=== PATIENT | female | born 2000 | race Hispanic/Latino ===

== ENCOUNTER 2021-03-21 07:30 | Emergency (ER) | payer OTHER, SELFPAY ==
[2021-03-21 07:55] VITALS: BP 134/77; PULSE 97; RESP 16; TEMP 36.7; O2SAT 98; BMI 49.4
--- NOTE | 2021-03-21 08:04 | ED.ABDPAIN ---
HPI - Abdominal Pain General Chief Complaint: Abdominal Pain Stated Complaint: rib pain Time Seen by Provider: 03/21/21 07:46 Source: patient Mode of arrival: Family Vehicle Limitations: no limitations History of Present Illness HPI narrative: Med patient is a 21-year-old female who presents with abdominal pain and epigastric and right upper quadrant pain ongoing for last 3 days. She initially had blood work and an outpatient ultrasound which she was told was fine and that her gallbladder was not an issue. She continued to have increasing pain the following day and went to [facility] was she had a CT. She says her CT was negative. She has hurts every time she breathes but she is not short of breath she has no radiating chest pain. No fever or chills. She has had decreased appetite. She has been told that she had gastritis by 2 other physicians but she does not have nausea vomiting or diarrhea. MD complaint: abdominal pain Onset (ago): day(s) (3) Pain Consistency: constant Location: RUQ and epigastric Severity: moderate Related Data Home Medications Medication Instructions Recorded Confirmed phentermine 37.5 mg PO DAILY 03/21/21 03/21/21 Previous Rx's Medication Instructions Recorded ibuprofen 600 mg PO Q6H PRN #30 tab 03/21/21 omeprazole 20 mg PO BID #30 cap 03/21/21 Allergies Allergy/AdvReac Type Severity Reaction Status Date / Time adhesive Allergy Verified 03/21/21 08:02 latex Allergy Verified 03/21/21 08:02 Review of Systems Review of Systems Narrative: GENERAL: Denies chills, fatigue, malaise, fever, sweats, travel HEENT: Denies sinus pain, ear pain, sore throat, difficulty swallowing, neck pain RESPIRATORY: Denies dyspnea, cough, wheezing, hemoptysis, sputum. CARDIOVASCULAR: Denies chest pain, palpitations, orthopnea, edema GASTROINTESTINAL: See HPI : Denies dysuria, frequency, incontinence, hematuria, urinary retention, flank pain. MUSCULOSKELETAL: Denies weakness, joint pain, or bony pain SKIN: No rash, no erythema, no pruritus NEUROLOGIC: Denies weakness, dizziness, headache, numbness, change in speech, confusion PSYCHIATRIC: No concerning psychosocial issues. 12 point review of systems is negative except for those stated above and HPI Patient History Medical History Patient denies medical problems Social History Smoking Status: Never smoker Smoking Status: Never smoker alcohol intake frequency: 0-2 drinks per day Substance Use Type: does not use Exam Initial Vital Signs Initial Vital Signs: Vital Signs Temperature 98.1 F 03/21/21 07:55 Pulse Rate 97 H 03/21/21 07:55 Respiratory Rate 16 03/21/21 07:55 Blood Pressure 134/77 03/21/21 07:55 Pulse Oximetry 98 03/21/21 07:55 GENERAL: Alert 21-year-old female BMI 49 appears uncomfortable and in no acute distress. HEENT: Head atraumatic,EOMI, pupils reactive, face symmetric, moist] mucous membranes CARDIOVASCULAR: Regular rate and rhythm without murmurs, rubs or gallops. RESPIRATORY: Breath sounds equal bilaterally, no wheezes rales or rhonchi. ABDOMEN: Soft, quite tender in her epigastric and right upper quadrant area with very minimal palpation. No lower abdominal pain. Tearful on exam EXTREMITIES: Normal range of motion, no clubbing or edema. Neurovascularly intact NEUROLOGICAL: Alert and oriented x4.Normal gait and speech. SKIN: Warm, dry, no laceration, no petechiae, no rashes or lesions. Scores PERC Score Age greater than or equal to 50 years: No Heart rate greater than or equal to 100 bpm: No Room Air O2 Sat less than 95%: No Unilateral leg swelling: No Recent trauma or surgery: No Hemoptysis: No Prior PE or DVT: No Hormone Use: No Total PERC Score: 0 Wells' Criteria for PE Clinical signs and symptoms of DVT: No PE is #1 Dx or equally likely: No Heart rate > 100: No Immobilization at least 3 days or surg in previous 4 weeks: No History of PE or DVT: No Hemoptysis: No Malignancy w/Treatment within 6 months or palliative: No Wells' PE Score total: 0 Course Orders Ordered: ED Orders 03/21/21 08:33 EKG-12 Lead Stat 03/21/21 08:55 Complete Blood Count AUTO DIFF Stat Comprehensive Metabolic Panel Stat Lipase Stat 03/21/21 10:16 XR chest 2V Stat Discontinued Medications Ketorolac Tromethamine (Ketorolac 30 Mg/Ml Vial) 30 mg IV NOW ONE Stop: 03/21/21 08:03 Last Admin: 03/21/21 09:02 Dose: 30 mg Documented by: JOSE J Pantoprazole Sodium (Pantoprazole 40 Mg Vial) 40 mg IV NOW ONE Stop: 03/21/21 08:03 Last Admin: 03/21/21 09:02 Dose: 40 mg Documented by: JOSE J Vital Signs Vital signs: Vital Signs - 8 hr 03/21/21 07:55 03/21/21 10:26 Temperature 98.1 F Pulse Rate 97 H 98 H Respiratory Rate 16 15 Blood Pressure 134/77 143/94 H Pulse Oximetry 98 97 MDM - Abdominal Pain Lab Data Attestation: I reviewed the patient's lab results. Result diagrams: 03/21/21 08:55 03/21/21 08:55 Labs: Lab Results 03/21/21 03/21/21 Range/Units 08:55 08:55 WBC 10.7 (4.5-11.0) X10^3/uL RBC 4.86 (4.0-5.2) X10^6/uL Hgb 14.4 (12.0-16.0) g/dL Hct 42.9 (36-46) % MCV 88.2 (80-100) fL MCH 29.6 (26-34) PG MCHC 33.5 (30-36) % RDW 13.9 (11.6-14.8) % Plt Count 279 (150-400) X10^3/uL Neut % (Auto) 69.6 (50-75) % Lymph % (Auto) 21.2 L (25-40) % Mckean % (Auto) 7.1 (3-14) % Eos % (Auto) 1.3 L (2-4) % Baso % (Auto) 0.8 (0-2) % Neut # (Auto) 7500 H (3738-1878) /uL Lymph # (Auto) 2300 (6494-1224) /uL Mckean # (Auto) 800 (0-900) /uL Eos # (Auto) 100 (0-450) /uL Baso # (Auto) 100 (0-100) /uL Sodium 137 (137-145) mmol/L Potassium 5.2 H (3.4-5.1) mmol/L Chloride 104 (98-107) mmol/L Carbon Dioxide 24 (22-32) mmol/L BUN 12 (7-17) mg/dL Creatinine 0.66 (0.52-1.04) mg/dL Estimated GFR > 60.0 (>60) mL/min BUN/Creatinine Ratio 18.2 (6-22) Glucose 90 (70-100) mg/dL Calcium 9.2 (8.4-10.2) mg/dL Total Bilirubin 0.9 (0.2-1.3) mg/dL AST 42 H (14-36) IU/L ALT 29 (<35) IU/L Alkaline Phosphatase 82 (38-126) U/L Total Protein 8.3 H (6.3-8.2) g/dL Albumin 4.3 (3.5-5.0) g/dL Globulin 4.0 (1.7-4.1) g/dL Albumin/Globulin Ratio 1.1 (1.0-2.8) Lipase 54 (23-300) U/L Imaging Data Chest x-ray: Radiologist's Impression: PROCEDURE: XR CHEST 2V INDICATIONS: right sided pain TECHNIQUE: 2 views of the chest were acquired. COMPARISON: [facility], CT, CT ABDOMEN PELVIS WITH CONTRAST, 03/19/2021, 21:47. [facility], CR, XR CHEST 2VW, 12/25/2016, 10:08. FINDINGS: Surgical changes and devices: None. Lungs and pleura: An incomplete inspiratory result is noted, causing a crowded appearance to the lung markings. No focal infiltrates are seen. No pneumothorax or significant pleural effusions are seen. Mediastinum: Mediastinal contours are normal. Heart size is normal. Bones and chest wall: No suspicious bony abnormalities. Soft tissues appear unremarkable. IMPRESSION: No shyla, acute abnormality can be seen. Low lung volumes. Dictated by: Yoan Pina M.D. on 03/21/2021 at 9:31 ECG Data Attestation: I personally reviewed and interpreted this ECG as follows: Prior ECG tracings: not available for review Interpretation: Normal sinus rhythm rate 86 p.r. interval 172 QRS 86 QTC 418 , no S-wave in lead 1 or Q-wave in lead 3 to suggest pulmonary embolism MDM Narrative Medical decision making narrative: Patient has had workup at [facility] records have been received and reviewed. She had CT and ultrasound which did not show any gallbladder abnormality. She has no reported nausea vomiting or diarrhea I think gastritis is unlikely. She is quite tender epigastric and actually pinpoint on her ribs on the right side. Right-sided pain is reproducible palpation of the rib which radiates to her epigastric area. She denies any recent injury. At this time I think costochondritis is more likely. EKG is overall reassuring no sign of pulmonary embolism on EKG she is also very low risk for PE at this time, she has a Mirena IUD and is not on hormone use, I do not think further testing or imaging is indicated for that. Her pain has improved after Toradol. Chest x-ray is reassuring. At this time no need to repeat ultrasound or CT scan blood work does not show any abnormality. Discharge Plan Departure Patient Disposition: Home Clinical Impression: Costochondritis Instructions: Costochondritis Activity Restrictions/Additional Instructions: *You have been diagnosed with costochondritis *What to do: At this time you have pinpoint pain on your ribs which may be from sprained rib this. He may try ice or heat. You may also require more testing of her gallbladder including a HIDA scan *Continue to take medications as directed Ibuprofen 600 mg every 6 hours if needed for [id number] pain Tylenol 1000 mg every 6 hours if needed for [id number] pain *Follow up with your primary care provider in 2-3 days *Return to ER if you should have increasing shortness of breath, chest pain or any new, worsening or concerning symptoms Prescriptions: New ibuprofen 600 mg tablet 600 mg PO Q6H PRN (Reason: fever or pain) Qty: 30 RF: 0 omeprazole 20 mg capsule,delayed release(DR/EC) 20 mg PO BID Qty: 30 RF: 0 No Action phentermine 37.5 mg tablet 37.5 mg PO DAILY RF: 0
[2021-03-21] MEDS: PANTOPRAZOLE 40 MG VIAL IV (09:02)
[2021-03-21] MEDS: KETOROLAC 30 MG/ML VIAL IV (09:02)
[2021-03-21 09:12] LABS: Add Manual Diff / Slide Review NO; Basophils Absolute Auto 100 /uL (0-100); Basophils Percent Auto 0.8 % (0-2); Eosinophils Absolute Auto 100 /uL (0-450); Eosinophils Percent Auto 1.3 % (2-4); Hematocrit 42.9 % (36-46); Hemoglobin 14.4 g/dL (12.0-16.0); Lymphocytes Absolute Auto 2300 /uL (1100-4500); Lymphocytes Percent Auto 21.2 % (25-40); Mean Corpuscular HGB Conc 33.5 % (30-36); Mean Corpuscular Hemoglobin 29.6 PG (26-34); Mean Corpuscular Volume 88.2 fL (80-100); Monocytes Absolute Auto 800 /uL (0-900); Monocytes Percent Auto 7.1 % (3-14); Neutrophils Absolute Auto 7500 /uL (1500-7000); Neutrophils Percent Auto 69.6 % (50-75); Platelet Count 279 X10^3/uL (150-400); Red Blood Cell Count 4.86 X10^6/uL (4.0-5.2); Red Cell Distribution Width 13.9 % (11.6-14.8); White Blood Cell Count 10.7 X10^3/uL (4.5-11.0)
[2021-03-21 09:28] LABS: Alanine Aminotransferase 29 IU/L (<35); Albumin 4.3 g/dL (3.5-5.0); Albumin Globulin Ratio 1.1 (1.0-2.8); Alkaline Phosphatase 82 U/L (38-126); Aspartate Aminotransferase 42 IU/L (14-36); BUN Creatinine Ratio 18.2 (6-22); Bilirubin Total 0.9 mg/dL (0.2-1.3); Blood Urea Nitrogen 12 mg/dL (7-17); Calcium 9.2 mg/dL (8.4-10.2); Carbon Dioxide 24 mmol/L (22-32); Chloride 104 mmol/L (98-107); Estimated Glomerular Filt Rate > 60.0 mL/min (>60); Glucose 90 mg/dL (70-100); Lipase 54 U/L (23-300); Potassium 5.2 mmol/L (3.4-5.1); Sodium 137 mmol/L (137-145); Total Protein 8.3 g/dL (6.3-8.2)
[2021-03-21 09:40] LABS: HEMOLYSIS 157 (0-50)
--- NOTE | 2021-03-21 10:16 | DI.RAD.S_ITS ---
PROCEDURE: XR CHEST 2V INDICATIONS: right sided pain TECHNIQUE: 2 views of the chest were acquired. COMPARISON: [facility], CT, CT ABDOMEN PELVIS WITH CONTRAST, 03/19/2021, 21:47. [facility], CR, XR CHEST 2VW, 12/25/2016, 10:08. FINDINGS: Surgical changes and devices: None. Lungs and pleura: An incomplete inspiratory result is noted, causing a crowded appearance to the lung markings. No focal infiltrates are seen. No pneumothorax or significant pleural effusions are seen. Mediastinum: Mediastinal contours are normal. Heart size is normal. Bones and chest wall: No suspicious bony abnormalities. Soft tissues appear unremarkable. IMPRESSION: No shyla, acute abnormality can be seen. Low lung volumes. Dictated by: Yoan Pina M.D. on 03/21/2021 at 9:31 Approved by: Yoan Pina M.D. on 03/21/2021 at 9:32
[2021-03-21 10:26] VITALS: BP 143/94; PULSE 98; RESP 15; O2SAT 97
== END 2021-03-21 10:45 | disposition home or self-care (01) ==
PROVIDERS: Emergency Provider Emergency Medicine
DX: M94.0 Chondrocostal junction syndrome [Tietze] (principal)
CPT/HCPCS: 36415; 71046; 80053; 83690; 85025; 93005; 96374; 96375; 99284; C9113; J1885

== ENCOUNTER 2021-08-17 16:06 | Emergency (ER) | payer OTHER, MEDICAID, SELFPAY ==
[2021-08-17 16:23] VITALS: BP 121/57; PULSE 71; RESP 20; TEMP 36.8; O2SAT 98
[2021-08-17 17:00] LABS: Add Manual Diff / Slide Review NO; Basophils Absolute Auto 0 /uL (0-100); Basophils Percent Auto 0.5 % (0-2); Eosinophils Absolute Auto 200 /uL (0-450); Eosinophils Percent Auto 2.5 % (2-4); Hematocrit 41.1 % (36-46); Hemoglobin 13.3 g/dL (12.0-16.0); Lymphocytes Absolute Auto 2700 /uL (1100-4500); Lymphocytes Percent Auto 34.7 % (25-40); Mean Corpuscular HGB Conc 32.3 % (30-36); Mean Corpuscular Volume 89.7 fL (80-100); Monocytes Absolute Auto 500 /uL (0-900); Monocytes Percent Auto 6.7 % (3-14); Neutrophils Absolute Auto 4400 /uL (1500-7000); Neutrophils Percent Auto 55.6 % (50-75); Platelet Count 289 X10^3/uL (150-400); Red Blood Cell Count 4.58 X10^6/uL (4.0-5.2); Red Cell Distribution Width 13.6 % (11.6-14.8); White Blood Cell Count 7.9 X10^3/uL (4.5-11.0)
[2021-08-17 17:04] LABS: Alanine Aminotransferase 26 IU/L (<35); Albumin 4.2 g/dL (3.5-5.0); Albumin Globulin Ratio 1.5 (1.0-2.8); Alkaline Phosphatase 69 U/L (38-126); Aspartate Aminotransferase 26 IU/L (14-36); BUN Creatinine Ratio 13.3 (6-22); Bilirubin Total 0.3 mg/dL (0.2-1.3); Blood Urea Nitrogen 10 mg/dL (7-17); Calcium 9.4 mg/dL (8.4-10.2); Carbon Dioxide 30 mmol/L (22-32); Chloride 103 mmol/L (98-107); Estimated Glomerular Filt Rate > 60.0 mL/min (>60); Globulin 2.8 g/dL (1.7-4.1); Glucose 128 mg/dL (70-100); HEMOLYSIS < 15 (0-50); Lipase 80 U/L (23-300); Potassium 4.3 mmol/L (3.4-5.1); Sodium 139 mmol/L (137-145)
== END 2021-08-17 19:39 | disposition left against medical advice (07) ==
PROVIDERS: Emergency Medicine; Emergency Provider Emergency Medicine; PCP Family Medicine
DX: R10.30 Lower abdominal pain, unspecified (principal)
CPT/HCPCS: 80053; 83690; 85025; 99281

== ENCOUNTER 2023-01-25 16:53 | Emergency (ER) | payer OTHER, MEDICAID, SELFPAY ==
[2023-01-25 17:20] VITALS: BP 123/72; PULSE 78; RESP 16; TEMP 36.6; O2SAT 100; BMI 46.0
--- NOTE | 2023-01-25 17:56 | DI.RAD.S_ITS ---
PROCEDURE: XR TIBIA FUBULA RT 2V INDICATIONS: fall down steps TECHNIQUE: 2 views of the tibia and fibula were acquired. COMPARISON: None. FINDINGS: Bones: No fractures or dislocations. No suspicious bony lesions. Soft tissues: No suspicious soft tissue calcifications or masses. IMPRESSION: Right tibia/fibula without acute fracture or dislocation. If there is persistent clinical concern for occult fracture given adequate mechanism of injury, consider repeat imaging in 10-14 days. Dictated by: Ishmael Lawson M.D. on 01/25/2023 at 17:20 Approved by: Ishmael Lawson M.D. on 01/25/2023 at 17:25
--- NOTE | 2023-01-25 18:47 | ED.LOWEXIN ---
HPI - Extremity Injury (Lower) General Chief Complaint: Extremity Injury, Lower Stated Complaint: Fell down stairs, R calf pain Time Seen by Provider: 01/25/23 18:45 Source: patient Mode of arrival: Family Vehicle History of Present Illness HPI Narrative: Patient was walking on the stairs and lost her footing. Floral a pop and strain in her right calf. Denies any other injuries. Very painful with bearing weight. Has increased pain with ankle extension pointing her toes up. But not with flexion pointing her toes down. No numbness tingling or weakness. Related Data Home Medications Medication Instructions Recorded Confirmed phentermine 37.5 mg tablet 37.5 mg PO DAILY 03/21/21 03/21/21 Previous Rx's Medication Instructions Recorded ibuprofen 600 mg tablet 600 mg PO Q6H PRN fever or pain 03/21/21 #30 tabs omeprazole 20 mg capsule,delayed 20 mg PO BID #30 caps 03/21/21 release Allergies Allergy/AdvReac Type Severity Reaction Status Date / Time adhesive Allergy Verified 01/25/23 17:55 latex Allergy Verified 01/25/23 17:55 Review of Systems Review of Systems Narrative: GENERAL: negative chills, fatigue, malaise, fever, sweats. HEENT: negative sinus pain, ear pain, sore throat RESPIRATORY: negative dyspnea, cough CARDIOVASCULAR: negative chest pain, palpitations GASTROINTESTINAL: negative nausea, vomiting, abdominal pain : negative dysuria, frequency, hematuria MUSCULOSKELETAL: Positive muscle or bony pain SKIN: negative rash, skin lesions NEUROLOGIC: negative weakness, numbness ROS Unobtainable: All systems reviewed & are unremarkable except as noted in HPI and below Patient History Medical History Patient denies medical problems Social History Smoking Status: Never smoker Smoking Status: Never smoker alcohol intake frequency: 0-2 drinks per day Substance Use Type: does not use Exam Narrative Exam Narrative: GENERAL: in no distress, not toxic not dyspneic HEAD: Normocephalic. EYES: Pupils equal round EXTREMITIES: No gross deformities. Examination right lower extremity shoe and sock removed. Need to toes exposed. Ankle and knee nontender. Mid calf is tender. Patient able to plantar flex with the ankle without difficulty. Achilles tendon is nontender. Patient has pain with ankle extension with pointing toes up NEURO: AOx4. SKIN: Warm and dry PSYCH: Not anxious, is cooperative Initial Vital Signs Initial Vital Signs: Vital Signs Temperature 97.8 F 01/25/23 17:20 Pulse Rate 78 01/25/23 17:20 Respiratory Rate 16 01/25/23 17:20 Blood Pressure 123/72 01/25/23 17:20 Pulse Oximetry 100 01/25/23 17:20 Oxygen Delivery Method Room Air 01/25/23 17:20 Course Orders Ordered: ED Orders 01/25/23 17:56 XR tibia fibula RT 2V Stat Vital Signs Vital signs: Vital Signs - 8 hr 01/25/23 17:20 Temperature 97.8 F Pulse Rate 78 Respiratory Rate 16 Blood Pressure 123/72 Pulse Oximetry 100 Oxygen Delivery Method Room Air [facility] - Extremity Injury (Lower) Imaging Data Extremity x-ray #1: Radiologist's Impression: PROCEDURE:? XR TIBIA FUBULA RT 2V ? INDICATIONS:? fall down steps ? TECHNIQUE:? 2 views of the tibia and fibula were acquired.? ? COMPARISON:? None. ? FINDINGS:? ? Bones:? No fractures or dislocations.? No suspicious bony lesions.? ? Soft tissues:? No suspicious soft tissue calcifications or masses.? ? IMPRESSION:? Right tibia/fibula without acute fracture or dislocation. ? If there is persistent clinical concern for occult fracture given adequate mechanism of injury, consider repeat imaging in 10-14 days. ? ? ? Dictated by: Ishmael Lawson M.D. on 01/25/2023 at 17:20 ? ? Approved by: Ishmael Lawson M.D. on 01/25/2023 at 17:25? ? ? [facility] Narrative Medical decision making narrative: Patient was walking on the stairs and lost her footing. Floral a pop and strain in her right calf. Denies any other injuries. Very painful with bearing weight. Has increased pain with ankle extension pointing her toes up. But not with flexion pointing her toes down. No numbness tingling or weakness. After history and exam x-ray right tib-fib ordered. Kevan wrap and crutches [facility] CC: Right calf pain Complicating co-morbidities: None Data collected from: Patient Medical records reviewed: No previous visits here for this complaint Differential considered: Includes but not limited to calf muscle strain/tear/Achilles tear/tib-fib fracture/contusion Exam documented above, pertinent findings include: Mid calf tenderness, nontender Achilles tendon Imaging studies independently reviewed: X-ray right tib-fib no acute process Treatments: Kvean wrap and crutches Re-evaluations: Patient tolerate Kevan wrap and crutches very well. Return precautions reviewed with her. Reviewed x-ray results with her. Agrees with treatment plan. She states her work environment is accommodating for her needs. Orthopedic referral given. She is comfortable for discharge home Discussion: Appropriate for discharge home. Exam and imaging are reassuring. Neurovascularly intact. At this time Achilles tendon is intact. However did review with patient likely calf muscle tear or strain. May need outpatient MRI if not improving. L and I forms completed. Pain controlled at time of discharge. Diagnosis: Right calf strain Discharge Plan Departure Patient Disposition: Home Clinical Impression: Strain of right calf muscle Instructions: DI for Calf Muscle Strain Activity Restrictions/Additional Instructions: Use crutches and Kevan wrap until office appointment. Please call Dr. Gordon office in the morning for office re-evaluation within a week. May use ibuprofen or Tylenol for pain. You may need to schedule outpatient MRI with family doctor or Dr. Gordon. Return if worse if any questions or concerns. May use cool packs to the muscle 20 minutes at a time for pain and swelling. Elevate leg when at rest. Prescriptions: No Action phentermine 37.5 mg tablet 37.5 mg PO DAILY Patient Comments: take 1 tablet by mouth every morning BEFORE BREAKFAST ibuprofen 600 mg tablet 600 mg PO Q6H PRN (Reason: fever or pain) Qty: 30 0RF omeprazole 20 mg capsule,delayed release(DR/EC) 20 mg PO BID Qty: 30 0RF Referrals: Ervin Gordon MD [Physician] - Cassi Son MD [Primary Care Provider] - Stand Alone Forms: Patient Portal/API, Work Release Note
== END 2023-01-25 19:05 | disposition home or self-care (01) ==
PROVIDERS: Emergency Provider Emergency Medicine; PCP Family Medicine
DX: S86.911A Strain of unspecified muscle(s) and tendon(s) at lower leg level, right leg, initial encounter (principal); W10.9XXA Fall (on) (from) unspecified stairs and steps, initial encounter; Y99.0 Civilian activity done for income or pay
CPT/HCPCS: 73590; 99282; 99283